=== PATIENT | female | born 1980 | race Caucasian/White ===

== ENCOUNTER 2017-01-15 12:34 | Emergency (ER) | payer MEDICAID, OTHER ==
--- NOTE | 2017-01-15 13:06 | ER Document Report ---
ED GI/ - General Chief Complaint: Vaginal Bleeding Stated Complaint: VAGINAL BLEEDING Time Seen by Provider: 01/15/17 12:54 TRAVEL OUTSIDE OF THE [place] IN LAST 30 DAYS: No - HPI Patient complains to provider of: Vaginal bleeding Onset: Yesterday Timing/Duration: Constant - heavier than normal with pelvic cramps Quality of pain: No pain Context: denies: Bad food, Lifting, Out of the country travel, , Recent trauma, Other Location: No: Chest pain, Epigastric, LUQ, LLQ, RUQ, RLQ, Left flank, Right flank, Low back, Suprapubic, Pelvis, Vaginal, Vulvar, Rectal, Other Vaginal bleeding (Compared to normal period): Heavier Menstrual period history: denies: Irregular - Regular: every 4 weeks and heavy : 3 Para: 3 Abortions: 0 Sexual history: Inactive Associated symptoms: Nausea Exacerbated by: Denies Relieved by: Remaining still, Other - motrin Similar symptoms previously: Yes Recently seen / treated by doctor: No - OBERIBERTO Nails, last pap smear was 2013 - Related Data Allergies/Adverse Reactions: Penicillins Allergy (Intermediate, Verified 01/15/17 12:54) Hives Past Medical History - General Last Menstrual Period: 01/14/2017 - Social History Smoking Status: Former Smoker Chew tobacco use (# tins/day): No Frequency of alcohol use: None Drug Abuse: None Family History: Reviewed & Not Pertinent Renal/ Medical History: Denies: Hx Peritoneal Dialysis Past Surgical History: Reports: Hx Section - 1, Hx Oral Surgery - tooth removal - Immunizations Immunizations up to date: No Hx Diphtheria, Pertussis, Tetanus Vaccination: No Physical Exam - Vital signs Vitals: Temp Pulse Resp BP Pulse Ox 98.5 F 90 16 130/70 H 97 01/15/17 12:42 01/15/17 12:42 01/15/17 12:42 01/15/17 12:42 01/15/17 12:42 - Notes Notes: PHYSICAL EXAM GENERAL: Alert, interacts well. HEAD: Normocephalic, atraumatic. EYES: Pupils equal, round, and reactive to light. Extraocular movements intact. ENT: Oral mucosa moist, tongue midline. LUNGS: Clear to auscultation bilaterally, no wheezes, rales, or rhonchi. No respiratory distress. HEART: Regular rate and rhythm. No murmurs, gallops, or rubs. ABDOMEN: Soft, nondistended, nontender. No guarding, rebound, or rigidity.. Bowel sounds present in all 4 quadrants. FEMALE : Normal external exam. No evidence of lesions, lacerations, bruising or vesicles. Speculum exam normal cervix closed. No evidence of vaginal discharge with odor. No evidence of lesions. Moderate amount of dark blood pooling within the vaginal vault without active vaginal bleeding. bimanual exam normal no cervical motion tenderness. No adnexal mass or adnexal tenderness. EXTREMITIES: Moves all 4 extremities spontaneously. No edema, radial and dorsalis pedis pulses 2/4 bilaterally. No cyanosis. NEUROLOGICAL: Alert and oriented x4. Normal speech. PSYCH: Normal affect, normal mood. SKIN: Warm, dry, normal turgor. No rashes or lesions noted. Course - Re-evaluation Re-evalutation: 01/15/17 15:03 Patient is a 36-year-old female who is hemodynamic stable, no acute distress and afebrile. CBC is stable without any evidence of leukocytosis or anemia. No evidence of electrolyte abnormalities. Patient's hCG was negative. Urinalysis shows red blood cells within the urine but no concern for urinary tract infection. Transvaginal ultrasound reveals a normal uterus with good blood flow to both arteries. No evidence of masses or fibroids. 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 Patient is agreeable with plan. After performing a Medical Screening Examination, I estimate there is LOW risk for ACUTE APPENDICITIS, BOWEL OBSTRUCTION, ACUTE CHOLECYSTITIS, PERFORATED DIVERTICULITIS, INCARCERATED HERNIA, PANCREATITIS, PELVIC INFLAMMATORY DISEASE, PERFORATED ULCER, ECTOPIC , or TUBO-OVARIAN ABSCESS, thus I consider the discharge disposition reasonable. Also, there is no evidence or peritonitis , sepsis, or toxicity. I have reevaluated this patient multiple times and no significant life threatening changes are noted. The patient and I have discussed the diagnosis and risks, and we agree with discharging home with close follow-up with the understanding that symptoms and presentations can change. We also discussed returning to the Emergency Department immediately if new or worsening symptoms occur. We have discussed the symptoms which are most concerning (e.g., bloody stool, fever, changing or worsening pain, vomiting) that necessitate immediate return. - Vital Signs Vital signs: Temp Pulse Resp BP Pulse Ox 98.5 F 90 16 130/70 H 97 01/15/17 12:42 01/15/17 12:42 01/15/17 12:42 01/15/17 12:42 01/15/17 12:42 - Laboratory Result Diagrams: 01/15/17 13:14 01/15/17 13:14 Laboratory results interpreted by me: 01/15/17 01/15/17 13:14 13:14 WBC 11.7 H RDW 14.9 H Absolute Neutrophils 8.3 H Urine Blood LARGE H - Diagnostic Test Radiology reviewed: Image reviewed, Reports reviewed Discharge - Discharge Clinical Impression: Dysfunctional uterine bleeding Condition: Good Disposition: HOME, SELF-CARE Additional Instructions: VAGINAL BLEEDING: You are having an episode of abnormal bleeding. Causes of abnormal vaginal bleeding can include miscarriage or tubal , tumors such as cancer or benign fibroids, medication effects, or hormone imbalance. Testing can eliminate unsuspected , tumors, or infection as a cause. "Dysfunctional uterine bleeding" is due to hormone imbalance, and is especially common at times when the normal cycle is disturbed -- whether by recent , use of control pills or hormones, or impending menopause. If the bleeding is innocent, most commonly a short course of hormones is given to restore the uterus to normal. Sometimes, the normal menstrual cycle corrects itself naturally. Sometimes , brief hormone therapy, or even a D&C is required. Your physician will advise you. Treatment for anemia may be required if bleeding is severe. You should rest and avoid intercourse until the bleeding is controlled. Call the doctor or return for re-examination if you feel faint, have increasing pain, or have a major increase in the amount of bleeding. NORMAL EXAM AND WORKUP: At this time, except for vaginal bleeding, your examination and workup show no significant abnormality. No significant abnormal physical findings were noted. All laboratory, EKG, and imaging (x-ray, CT scans, ultrasound) studies that were ordered show no significant abnormality. Although your examination and all studies that were ordered showed no significant abnormal finding, there are no examinations and no studies that are 100% accurate. There is always the possibility that some abnormality could exist and not be detected with physical examination or within the limits and capabilities of laboratory and other studies. You should return or follow up as you were instructed on your visit today for further evaluation if your symptoms do not resolve. FOLLOW-UP CARE: If you have been referred to a physician for follow-up care, call the physician s office for an appointment as you were instructed or within the next two days. If you experience worsening or a significant change in your symptoms (very heavy bleeding with large clots of blood, passage of tissue, more severe abdominal / pelvic pain or cramping, feeling faint or severe weakness, fever, etc.), notify the physician immediately or return to the Emergency Department at any time for re-evaluation. Prescriptions: Norgestimate-Ethinyl Estradiol [Tri-Sprintec] 1 each PO DAILY #30 tablet Forms: Return to Work Referrals: NITHYA NAILS MD [Primary Care Provider] - Follow up in 3-5 days
[2017-01-15 13:40] LABS: ABSOLUTE BASOPHILS # (AUTO) 0.1 10^3/uL (0.0-0.2); ABSOLUTE EOSINOPHILS # (AUTO) 0.3 10^3/uL (0.0-0.6); ABSOLUTE LYMPHOCYTES (AUTO) 2.1 10^3/uL (0.5-4.7); ABSOLUTE MONOCYTES (AUTO) 0.9 10^3/uL (0.1-1.4); ABSOLUTE NEUT (AUTO) 8.3 10^3/uL (1.7-8.2); BASOPHILS % (AUTO) 0.8 % (0-2); EOSINOPHILS % (AUTO) 2.6 % (0-6); HEMATOCRIT 37.5 % (36.0-47.0); HEMOGLOBIN 12.5 g/dL (12.0-15.5); LYMPHOCYTES % (AUTO) 17.7 % (13-45); MEAN CORPUSCULAR HEMOGLOBIN 29.3 pg (27.0-33.4); MEAN CORPUSCULAR HGB CONC 33.3 g/dL (32.0-36.0); MEAN CORPUSCULAR VOLUME 88 fl (80-97); MONOCYTES % (AUTO) 7.8 % (3-13); RED BLOOD COUNT 4.27 10^6/uL (3.72-5.28); RED CELL DISTRIBUTION WIDTH 14.9 % (11.5-14.0); SEGMENTED NEUTROPHILS % (AUTO) 71.1 % (42-78); WHITE BLOOD COUNT 11.7 10^3/uL (4.0-10.5)
[2017-01-15 13:52] LABS: APPEARANCE,URINE SLIGHTLY-CLOUDY; BILIRUBIN,URINE NEGATIVE (NEGATIVE); CALCIUM OXALATE CRYSTALS,URINE MODERATE /HPF; GLUCOSE, URINE NEGATIVE (NEGATIVE); KETONES,URINE NEGATIVE (NEGATIVE); LEUKOCYTE ESTERASE,URINE NEGATIVE (NEGATIVE); NITRITE,URINE NEGATIVE (NEGATIVE); PROTEIN,URINE NEGATIVE (NEGATIVE); URINE SPECIFIC GRAVITY 1.029; UROBILINOGEN,URINE NEGATIVE mg/dL (<2.0)
[2017-01-15 14:02] LABS: ALANINE AMINOTRANSFERASE 33 U/L (9-52); ALBUMIN 4.2 g/dL (3.5-5.0); ALKALINE PHOSPHATASE 62 U/L (38-126); ANION GAP 12 (5-19); ASPARTATE AMINO TRANSFERASE 20 U/L (14-36); BILIRUBIN,DIRECT 0.3 mg/dL (0.0-0.4); BILIRUBIN,TOTAL 0.3 mg/dL (0.2-1.3); BLOOD UREA NITROGEN 10 mg/dL (7-20); CALCIUM 9.9 mg/dL (8.4-10.2); CARBON DIOXIDE 25 mmol/L (22-30); CHLORIDE 104 mmol/L (98-107); CREATININE RESULT 0.75 mg/dL (0.52-1.25); GLUCOSE 80 mg/dL (75-110); POTASSIUM 4.3 mmol/L (3.6-5.0); SODIUM 141.4 mmol/L (137-145); TOTAL PROTEIN 6.9 g/dL (6.3-8.2)
--- NOTE | 2017-01-15 14:51 | RADIOLOGY REPORT (SQ) ---
EXAM DESCRIPTION: U/S NON OB PEL TV W/DOPPLER COMPLETED DATE/TIME: 01/15/2017 2:35 pm REASON FOR STUDY: vaginal bleeding and pelvic cramping COMPARISON: None. TECHNIQUE: Dynamic and static grayscale images acquired of the pelvis via transvaginal approach and recorded on PACS. Additional selected color Doppler and spectral images recorded. LIMITATIONS: None. FINDINGS: UTERUS: Contour normal. No mass. ENDOMETRIAL STRIPE: No focal or generalized thickening. No masses. CERVIX: No nabothian cysts. RIGHT OVARY: Ovary not visualized. RIGHT OVARY DOPPLER: Normal arterial vascular flow without evidence for torsion. LEFT OVARY: 1.7 cm dominant follicle or small cyst. LEFT OVARY DOPPLER: Normal arterial vascular flow without evidence for torsion. FREE FLUID: None noted. OTHER: No other significant finding. MEASUREMENTS: UTERUS: 10.2 x 5.6 x 4.9 cm ENDOMETRIAL STRIPE: 4 mm RIGHT OVARY: Not visualized. LEFT OVARY: 2.0 x 1.7 x 2.0 cm IMPRESSION: NORMAL TRANSVAGINAL PELVIC ULTRASOUND. TECHNICAL DOCUMENTATION: JOB ID: [id number]- All Rights Reserved
[2017-01-15 15:17] VITALS: BP 125/65
[2017-01-15 15:19] LABS: CHLAM PCR NOT DETECTED (NOT DETECT)
== END 2017-01-15 15:13 | disposition home or self-care (01) ==
LOC: ER 12:34
DX: N93.8 Other specified abnormal uterine and vaginal bleeding (principal); R11.0 Nausea; Z88.0 Allergy status to penicillin; Z87.891 Personal history of nicotine dependence
CPT/HCPCS: 36415; 76830; 80053; 81001; 84702; 85025; 87210; 87491; 87591; 93976; 99284

== ENCOUNTER 2017-04-05 14:22 | Emergency (ER) | payer SELFPAY ==
[2017-04-05] MEDS ORDERED: NAPROXEN 250 MG TABLET PO ONE (15:17)
[2017-04-05] MEDS ORDERED: METHOCARBAMOL 750 MG TABLET PO ONE (15:17)
[2017-04-05] MEDS ORDERED: DEXAMETHASONE 4 MG TABLET PO ONE (15:17)
[2017-04-05 15:22] VITALS: BP 113/68
--- NOTE | 2017-04-05 15:22 | ER Document Report ---
ED Neck/Back Problem - General Chief Complaint: Back Pain Stated Complaint: BACK PAIN Time Seen by Provider: 04/05/17 15:11 Notes: The patient is a 36-year-old female, past medical history chronic back pain, presents with worsening of her back pain after she bent over to diamond picker an object. She felt some spasming and pain that is worse when she moves. She denies change in bowel or bladder, urinary symptoms, fevers, nausea, vomiting, rash or saddle anesthesia. TRAVEL OUTSIDE OF THE [place] IN LAST 30 DAYS: No - Related Data Allergies/Adverse Reactions: Penicillins Allergy (Intermediate, Verified 04/05/17 14:51) Hives Past Medical History - General Information source: Patient - Social History Smoking Status: Former Smoker Chew tobacco use (# tins/day): No Frequency of alcohol use: None Drug Abuse: None Family History: Reviewed & Not Pertinent Patient has suicidal ideation: No Patient has homicidal ideation: No Renal/ Medical History: Denies: Hx Peritoneal Dialysis Past Surgical History: Reports: Hx Section - 1, Hx Oral Surgery - tooth removal - Immunizations Immunizations up to date: No Hx Diphtheria, Pertussis, Tetanus Vaccination: No Review of Systems - Review of Systems Notes: REVIEW OF SYSTEMS: CONSTITUTIONAL: -fevers, -chills EENT: -eye pain, -difficulty swallowing, -nasal congestion CARDIOVASCULAR:-chest pain, -syncope. RESPIRATORY: -cough, -SOB GASTROINTESTINAL: -abdominal pain, - nausea, -vomiting, -diarrhea GENITOURINARY: -dysuria, -hematuria MUSCULOSKELETAL: +back pain, -neck pain SKIN: -rash or skin lesions. HEMATOLOGIC: -easy bruising or bleeding. LYMPHATIC: -swollen, enlarged glands. NEUROLOGICAL: -altered mental status or loss of consciousness, -headache, - neurologic symptoms PSYCHIATRIC: -anxiety, -depression. ALL OTHER SYSTEMS REVIEWED AND NEGATIVE. Physical Exam - Vital signs Vitals: Temp Pulse Resp BP Pulse Ox 98.6 F 121 H 16 118/64 97 04/05/17 14:50 04/05/17 14:50 04/05/17 14:50 04/05/17 14:50 04/05/17 14:50 - Notes Notes: PHYSICAL EXAMINATION: GENERAL: Uncomfortable. HEAD: Atraumatic, normocephalic. EYES: Pupils equal round and reactive to light, extraocular movements intact, sclera anicteric, conjunctiva are normal. ENT: nares patent, oropharynx clear without exudates. Moist mucous membranes. NECK: Normal range of motion, supple without lymphadenopathy LUNGS: Breath sounds clear to auscultation bilaterally and equal. No wheezes rales or rhonchi. HEART: Regular rate and rhythm without murmurs ABDOMEN: Soft, nontender, normoactive bowel sounds. No guarding, no rebound. No masses appreciated. EXTREMITIES: Normal range of motion, no pitting or edema. No cyanosis. BACK: Lower back paraspinal tenderness and spasming. No midline tenderness. NEUROLOGICAL: Cranial nerves grossly intact. Normal speech, normal gait. Normal sensory and motor exams. PSYCH: Normal mood, normal affect. SKIN: Warm, Dry, normal turgor, no rashes or lesions noted. Course - Re-evaluation Re-evalutation: Patient has no urinary symptoms to suggest pyelonephritis or kidney stones. She has an acute exacerbation of her chronic back pain and spasming of her lower back. Her initial tachycardia on arrival to the ER resolved while she was at rest. This was most likely related to her pain. She has no red flag signs for low back pain at this time. Instructed her to continue NSAIDs, Robaxin, Lidoderm patches and follow with her primary care physician for referral to physical therapy. - Vital Signs Vital signs: Temp Pulse Resp BP Pulse Ox 98.6 F 98 16 113/68 97 04/05/17 14:50 04/05/17 15:22 04/05/17 15:22 04/05/17 15:22 04/05/17 14:50 Discharge - Discharge Clinical Impression: Low back pain Qualifiers: Chronicity: acute Back pain laterality: bilateral Sciatica presence: without sciatica Qualified Code(s): M54.5 - Low back pain Condition: Stable Disposition: HOME, SELF-CARE Additional Instructions: LOW BACK PAIN: Three out of every four people will have an episode of disabling back pain during their lifetime. Most commonly the pain is due to straining of the muscles and ligaments in the low back. Usual treatment includes: (1) Rest on a firm surface. Avoid lying on your stomach. (2) Ice pack the painful area. After a few days, gentle heat may be used intermittently to relax the area, or ice packs can be continued. (3) Medication may be needed -- muscle relaxers and antiinflammatory medicines are commonly used. (4) As the back improves, exercises are prescribed to strengthen the back and abdominal muscles. Your doctor will advise you on the proper care for your back at each stage in your recovery. You may be better in a few days -- or healing may take several weeks. If new symptoms of a "herniated disc" (radiation of pain, numbness, or tingling down the back of the leg or weakness in the leg) occur, you should be re-examined. Further testing may be necessary. MUSCLE RELAXERS: Muscle relaxing medications are usually prescribed for acute muscle spasm or injury to the neck and back. They are often combined with antiinflammatory pain medication for increased relief. You may stop the muscle relaxer when the pain and stiffness have improved. Start the medication again if spasms recur. Muscle relaxers may cause drowsiness, especially with the first dose. Do not operate machinery or drive while under the effects of the medication. Most muscle relaxers last up to 24 hours. Do not combine the medication with alcohol. ICE PACKS: Apply ice packs frequently against the painful area. Many different schedules are recommended, such as "20 minutes on, 20 minutes off" or "one hour ice, two hours rest." If you need to work, you may need to go longer between ice treatments. You should plan to have the area ice packed AT LEAST one fourth of the time. The ice should be applied over the wrap, tape, or splint, or over a layer of cloth -- not directly against the skin. Some ice bags have a built-in cloth and can be put directly on the skin. WARM PACKS: After approximately two days, apply gentle heat (such as a heating pad or hot water bottle) for about 20 to 30 minutes about every two hours -- at least four times daily. Warmth and elevation will help you make a more rapid recovery , and will ease the pain considerably. Do not use HOT heat, and never apply heat for longer than 30 minutes. The continuous heat can invisibly damage skin and muscles -- even when no burn is seen on the surface. Damaged muscles can make you MORE sore. FOLLOW-UP CARE: If you have been referred to a physician for follow-up care, call the physician s office for an appointment as you were instructed or within the next two days. If you experience worsening or a significant change in your symptoms, notify the physician immediately or return to the Emergency Department at any time for re-evaluation. Prescriptions: Lidocaine [Lidoderm 5% (700 mg) Transdermal Patch] 1 patch TP DAILY #10 adh..patch Methocarbamol [Robaxin 500 mg Tablet] 500 mg PO Q4H PRN #15 tablet PRN Reason: Forms: Return to Work
== END 2017-04-05 15:30 | disposition home or self-care (01) ==
LOC: ER 14:22
DX: G89.29 Other chronic pain (principal); M54.5 Low back pain; Z88.0 Allergy status to penicillin
CPT/HCPCS: 99283; J3490

== ENCOUNTER 2018-02-13 20:38 | Emergency (ER) | payer SELFPAY ==
--- NOTE | 2018-02-13 23:02 | ER Document Report ---
HPI - HPI Pain Level: 4 Notes: Patient is a 37-year-old female who presents to the ED complaining of left ear pain and feeling of swelling to the left jaw area times 1 day. Patient has also had nasal congestion/discharge and sneezing. Patient states that she does have some mold in her house. The pain is to the left ear and will occasionally come down towards her jaw and her neck. She is eating and drinking without any difficulties. She is urinating normally and having normal bowel movements. Patient states that she otherwise feels well. Denies any headache, fever, head injury, neck pain, changes in vision/speech/mentation/hearing, URI, sore throat , chest pain, palpitations, syncope, cough, shortness of breath, wheeze, dyspnea , abdominal pain, nausea/vomiting/diarrhea, urinary retention, dysuria, hematuria, or rash. - ROS Systems Reviewed and Negative: Yes All other systems reviewed and negative - EENT EENT: REPORTS: Sore Throat, Ear Pain - REPRODUCTIVE LMP: na Reproductive: DENIES: : Past Medical History - Social History Smoking Status: Current Every Day Smoker Chew tobacco use (# tins/day): No Frequency of alcohol use: None Drug Abuse: None Family History: Reviewed & Not Pertinent Patient has suicidal ideation: No Patient has homicidal ideation: No Renal/ Medical History: Denies: Hx Peritoneal Dialysis Past Surgical History: Reports: Hx Section - 1, Hx Oral Surgery - tooth removal - Immunizations Immunizations up to date: No Hx Diphtheria, Pertussis, Tetanus Vaccination: No Vertical Provider Document - CONSTITUTIONAL Agree With Documented VS: Yes Notes: PHYSICAL EXAMINATION: GENERAL: Well-appearing, well-nourished and in no acute distress. HEAD: Atraumatic, normocephalic. EYES: Pupils equal round and reactive to light, extraocular movements intact, sclera anicteric, conjunctiva are normal. ENT: EAC clear b/l. TM's intact b/l without erythema, fluid, or perforation. Nares patent and with clear discharge. oropharynx clear without exudates. No tonsilar hypertrophy or erythema. Moist mucous membranes. No sinus tenderness. Uvula midline. No palatine shift. No tongue protrusion. No respiratory compromise. Mouth: No obvious abscess or discharge noted. No facial swelling. No bony tenderness. NECK: Normal range of motion, supple without lymphadenopathy. No rigidity/ meningismus. LUNGS: Breath sounds clear to auscultation bilaterally and equal. No wheezes rales or rhonchi. HEART: Regular rate and rhythm without murmurs, rubs, gallops. NEUROLOGICAL: Cranial nerves grossly intact. Normal speech, normal gait. PSYCH: Normal mood, normal affect. SKIN: Warm, Dry, normal turgor, no rashes or lesions noted. - INFECTION CONTROL TRAVEL OUTSIDE OF THE [place] IN LAST 30 DAYS: No Course - Re-evaluation Re-evalutation: 02/13/18 22:54 Patient is an afebrile, well-hydrated, 37-year-old female who presents to the ED with left otalgia, suspect eustachian tube dysfunction allergy with possible etiology. Vitals are acceptable. PE is otherwise unremarkable. Patient is nontoxic-appearing and is tolerating p.o. without any difficulties. No labs or imaging warranted at this time based on H&P. Low suspicion for any meningitis, sepsis, peritonsillar/pharyngeal abscess, respiratory compromise, Johnathan's, temporal arteritis, mastoiditis, or other emergent systemic condition at this time. Patient is aware this condition can change from initial presentation and she needs to monitor symptoms closely. We will send her home with a prescription for clindamycin which she may begin with any worsening swelling or dental pain. Conservative measures otherwise for symptoms. Recheck with your PCM this week as well. Return to the ED with any worsening/concerning symptoms otherwise as reviewed in discharge. Patient is in agreement. - Vital Signs Vital signs: Temp Pulse Resp BP Pulse Ox 99.1 F 86 18 129/83 H 98 02/13/18 20:55 02/13/18 20:55 02/13/18 20:55 02/13/18 20:55 02/13/18 20:55 Discharge - Discharge Clinical Impression: Eustachian tube dysfunction Qualifiers: Laterality: left Qualified Code(s): H69.82 - Other specified disorders of Eustachian tube, left ear Allergic rhinitis Qualifiers: Allergic rhinitis trigger: other Allergic rhinitis seasonality: unspecified Qualified Code(s): J30.89 - Other allergic rhinitis Condition: Stable Disposition: HOME, SELF-CARE Instructions: OTC Antihistamines ([facility]) Additional Instructions: Maintain adequate fluid intake Take meds as directed tylenol/ibuprofen as needed over the counter cold medication as needed for symptoms Humidified air may help Wash your hands regularly Wear a mask when coughing F/u: with your PCM in 3-5 days for a recheck Return to the ED with any fever, worsening pain, chest pain, palpitations, syncope, worsening JAMES, neck pain/stiffness, shortness of breath, wheezing, drooling, trouble swallowing/breathing, abdominal pain, n/v/d, rash, or worsening/concerning symptoms otherwise. Forms: Elevated Blood Pressure, Smoking Cessation Education Referrals: [facility] [Provider Group] - Follow up as needed [facility] [Provider Group] - Follow up as needed
[2018-02-13 23:20] VITALS: BP 119/80
== END 2018-02-13 23:20 | disposition home or self-care (01) ==
LOC: ER 20:38
DX: H69.82 Other specified disorders of Eustachian tube, left ear (principal); J30.89 Other allergic rhinitis; H92.02 Otalgia, left ear; F17.200 Nicotine dependence, unspecified, uncomplicated
CPT/HCPCS: 99283

== ENCOUNTER 2018-12-23 06:46 | Emergency (ER) | payer SELFPAY ==
--- NOTE | 2018-12-23 07:47 | EKG REPORT ---
SEVERITY:- NORMAL ECG - SINUS RHYTHM : Confirmed by: Derek Sprague MD 23-Dec-2018 07:37:10
[2018-12-23] MEDS ORDERED: ASPIRIN 325 MG TABLET PO ONE (08:51)
[2018-12-23] MEDS ORDERED: NORMAL SALINE 1000 ML 1,000 ML IV ONE (08:53)
--- NOTE | 2018-12-23 08:53 | ER Document Report ---
ED General - General Chief Complaint: Chest Pain Stated Complaint: CHEST/BACK PAIN Time Seen by Provider: 12/23/18 08:41 Primary Care Provider: [facility] [Provider Group] - Follow up in 3-5 days TRAVEL OUTSIDE OF THE [place] IN LAST 30 DAYS: No - HPI Notes: 38 year old female to the ED with C/O midsternal chest pain that radiates through to her back that has been coming and going since Sunday. She admits to slight SOB with it. Denies any diaphoresis, NV, dizziness, arm pain. States she was recently diagnosed with asthma. States on Sunday she took her inhaler and felt better. States that she didn't have another episode of chest pain until this morning at 5 am. She is not diabetic. She does not have HTN or HLD. She does not smoke. She is unsure of her family history in regards to ACS, but she does not recall anyone having a heart attack. She has not taken anything for her pain this AM. No recent travel, no OCP use, no leg swelling, no recent immobilization or surgery. No hx of DVT. - Related Data Allergies/Adverse Reactions: Penicillins Allergy (Intermediate, Verified 08/29/17 17:45) Hives Past Medical History - General Information source: Patient - Social History Smoking Status: Never Smoker Frequency of alcohol use: None Drug Abuse: None Family History: Reviewed & Not Pertinent Renal/ Medical History: Denies: Hx Peritoneal Dialysis Past Surgical History: Reports: Hx Section - 1, Hx Oral Surgery - tooth removal - Immunizations Immunizations up to date: No Hx Diphtheria, Pertussis, Tetanus Vaccination: No Review of Systems - Review of Systems Constitutional: denies: Chills, Diaphoresis, Fever EENT: denies: No symptoms reported Cardiovascular: Chest pain. denies: Palpitations, Dyspnea, Syncope, Dizziness, Lightheaded Respiratory: Hurts to breathe, Short of breath. denies: Cough, Wheezing Gastrointestinal: denies: Abdominal pain, Diarrhea, Nausea, Vomiting Genitourinary: No symptoms reported Female Genitourinary: No symptoms reported Musculoskeletal: Back pain Skin: No symptoms reported Hematologic/Lymphatic: No symptoms reported Neurological/Psychological: No symptoms reported -: Yes All other systems reviewed and negative Physical Exam - Vital signs Vitals: Temp Pulse Resp BP Pulse Ox 98.4 F 77 16 144/71 H 97 12/23/18 06:54 12/23/18 06:54 12/23/18 06:54 12/23/18 06:54 12/23/18 06:54 Interpretation: Normal - General General appearance: Appears well, Alert - HEENT Head: Normocephalic, Atraumatic Eyes: Normal Pupils: PERRL - Respiratory Respiratory status: No respiratory distress Chest status: Nontender Breath sounds: Normal Chest palpation: Normal - Cardiovascular Rhythm: Regular Heart sounds: Normal auscultation Murmur: No - Abdominal Inspection: Normal Distension: No distension Bowel sounds: Normal Tenderness: Nontender Organomegaly: No organomegaly - Back Back: Normal, Nontender - Neurological Neuro grossly intact: Yes Cognition: Normal Orientation: AAOx4 Debord Coma Scale Eye Opening: Spontaneous Debord Coma Scale Verbal: Oriented Debord Coma Scale Motor: Obeys Commands Debord Coma Scale Total: 15 Speech: Normal Motor strength normal: LUE, RUE, LLE, RLE Sensory: Normal - Psychological Associated symptoms: Normal affect, Normal mood - Skin Skin Temperature: Warm Skin Moisture: Dry Skin Color: Normal Course - Re-evaluation Re-evalutation: Impression: Chest pain, Patient has a HEART Score of 1. She has a reassuring CXR, EKG, negative Trops X2. She is chest pain free. Will discharge home with close outpatient follow up. Urged to return if her symptoms worsen. Doubt PE or AD. She is PERC negative. - Vital Signs Vital signs: Temp Pulse Resp BP Pulse Ox 98.9 F 77 15 129/89 H 100 12/23/18 13:01 12/23/18 06:54 12/23/18 13:01 12/23/18 13:01 12/23/18 13:01 - Laboratory Result Diagrams: 12/23/18 09:29 12/23/18 09:29 Laboratory results interpreted by me: 12/23/18 12/23/18 09:29 09:29 WBC 12.2 H RDW 15.0 H Absolute Neutrophils 8.5 H Total Protein 5.6 L Albumin 3.3 L - Diagnostic Test Radiology reviewed: Image reviewed, Reports reviewed - EKG Interpretation by Me EKG shows normal: Sinus rhythm Rate: Normal Rhythm: NSR When compared to previous EKG there are: No significant change Additional EKG results interpreted by me: NO STEMI, no ST CHANGES, no significant change from prior in August 2017 Discharge - Discharge Clinical Impression: Chest pain Condition: Stable Disposition: HOME, SELF-CARE Instructions: Chest Pain of Unclear Cause ([facility]) Additional Instructions: TAKE MEDICINES PRESCRIBED. RETURN IF WORSENING PAIN, FEVERS, CHILLS, SHORTNESS OF BREATH, SWEATING WITH CHEST PAIN AND SHORTNESS OF BREATH. PUSH FLUIDS. FOLLOW UP WITH PRIMARY CARE WITHOUT FAIL. Prescriptions: Naproxen [Naprosyn 375 Mg Tablet] 375 mg PO BID #20 tablet Forms: Return to Work Referrals: [facility] [Provider Group] - Follow up in 3-5 days
[2018-12-23 09:27] LABS: APPEARANCE,URINE CLEAR; BILIRUBIN,URINE NEGATIVE (NEGATIVE); COLOR,URINE YELLOW; GLUCOSE, URINE NEGATIVE (NEGATIVE); KETONES,URINE NEGATIVE (NEGATIVE); LEUKOCYTE ESTERASE,URINE NEGATIVE (NEGATIVE); NITRITE,URINE NEGATIVE (NEGATIVE); PROTEIN,URINE NEGATIVE (NEGATIVE); URINE SPECIFIC GRAVITY 1.015; UROBILINOGEN,URINE NEGATIVE mg/dL (<2.0)
--- NOTE | 2018-12-23 09:33 | RADIOLOGY REPORT (SQ) ---
EXAM DESCRIPTION: CHEST 2 VIEWS COMPLETED DATE/TIME: 12/23/2018 9:13 am REASON FOR STUDY: chest pain COMPARISON: None. EXAM PARAMETERS: NUMBER OF VIEWS: two views TECHNIQUE: Digital Frontal and Lateral radiographic views of the chest acquired. RADIATION DOSE: NA LIMITATIONS: none FINDINGS: LUNGS AND PLEURA: No opacities, masses or pneumothorax. No pleural effusion. MEDIASTINUM AND HILAR STRUCTURES: No masses or contour abnormalities. HEART AND VASCULAR STRUCTURES: Heart normal size. No evidence for failure. BONES: No acute findings. HARDWARE: None in the chest. OTHER: No other significant finding. IMPRESSION: No acute abnormality of the lungs. No focal airspace opacity. TECHNICAL DOCUMENTATION: JOB ID: [id number] [employer]- All Rights Reserved Reading location - IP/workstation name: [email or web address]
[2018-12-23 09:54] LABS: ABSOLUTE BASOPHILS # (AUTO) 0.1 10^3/uL (0.0-0.2); ABSOLUTE EOSINOPHILS # (AUTO) 0.3 10^3/uL (0.0-0.6); ABSOLUTE LYMPHOCYTES (AUTO) 2.4 10^3/uL (0.5-4.7); ABSOLUTE MONOCYTES (AUTO) 0.9 10^3/uL (0.1-1.4); ABSOLUTE NEUT (AUTO) 8.5 10^3/uL (1.7-8.2); BASOPHILS % (AUTO) 1.2 % (0-2); EOSINOPHILS % (AUTO) 2.7 % (0-6); HEMATOCRIT 41.2 % (36.0-47.0); HEMOGLOBIN 13.6 g/dL (12.0-15.5); LYMPHOCYTES % (AUTO) 19.4 % (13-45); MEAN CORPUSCULAR HEMOGLOBIN 29.1 pg (27.0-33.4); MEAN CORPUSCULAR VOLUME 88 fl (80-97); MONOCYTES % (AUTO) 7.1 % (3-13); PLATELET COUNT 305 10^3/uL (150-450); RED BLOOD COUNT 4.67 10^6/uL (3.72-5.28); SEGMENTED NEUTROPHILS % (AUTO) 69.6 % (42-78); TOTAL CELLS COUNTED % (AUTO) 100 %; WHITE BLOOD COUNT 12.2 10^3/uL (4.0-10.5)
[2018-12-23 10:12] LABS: ALBUMIN 3.3 g/dL (3.5-5.0); ALKALINE PHOSPHATASE 43 U/L (38-126); ANION GAP 6 (5-19); ASPARTATE AMINO TRANSFERASE 21 U/L (14-36); BILIRUBIN,DIRECT 0.3 mg/dL (0.0-0.4); BILIRUBIN,TOTAL 0.4 mg/dL (0.2-1.3); BLOOD UREA NITROGEN 8 mg/dL (7-20); CALCIUM 9.1 mg/dL (8.4-10.2); CARBON DIOXIDE 26 mmol/L (22-30); CHLORIDE 107 mmol/L (98-107); CREATINE KINASE 46 U/L (30-135); GLUCOSE 89 mg/dL (75-110); POTASSIUM 4.5 mmol/L (3.6-5.0); TOTAL PROTEIN 5.6 g/dL (6.3-8.2)
[2018-12-23 10:24] LABS: CREATINE KINASE MB < 0.22 ng/mL (<4.55); TROPONIN I < 0.012 ng/mL
[2018-12-23 14:21] VITALS: BP 129/89
== END 2018-12-23 14:21 | disposition home or self-care (01) ==
LOC: ER 06:46
DX: R07.1 Chest pain on breathing (principal); J45.909 Unspecified asthma, uncomplicated; R06.02 Shortness of breath; Z88.0 Allergy status to penicillin
CPT/HCPCS: 93005; 99285; 96360; 36415; 82553; 82550; 83690; 84703; 85025; 80053; 81001; 84484; 71046; 93010; J7030

== ENCOUNTER 2019-01-29 19:38 | Emergency (ER) | payer SELFPAY ==
--- NOTE | 2019-01-29 21:04 | ER Document Report ---
ED Medical Screen (RME) - General Chief Complaint: Flank Pain Stated Complaint: BACK PAIN Time Seen by Provider: 01/29/19 20:56 Mode of Arrival: Ambulatory Information source: Patient Notes: This 38-year-old female presents emergency department with right-sided abdominal pain. Patient reports 2 to 3 days ago she started having right-sided low back pain. Today she started having right-sided abdominal pain lower and upper into the epigastric area. Denies fever vomiting diarrhea. Reports she is voiding without problems. Last bowel movement was this a.m. She reports she just finished her menses. Reports history of kidney stones when she was a teenager. Patient still has her gallbladder and appendix. No pains with walking. Abdomen is round but patient reports is not larger than normal. I have greeted and performed a rapid initial assessment of this patient. A comprehensive ED assessment and evaluation of the patient, analysis of test results and completion of the medical decision making process will be conducted by additional ED providers. Dictation of this chart was performed using voice recognition software; therefore, there may be some unintended grammatical errors. TRAVEL OUTSIDE OF THE [place] IN LAST 30 DAYS: No - Related Data Allergies/Adverse Reactions: Penicillins Allergy (Intermediate, Verified 01/29/19 19:45) Hives Past Medical History Pulmonary Medical History: Reports: Hx Asthma Renal/ Medical History: Denies: Hx Peritoneal Dialysis Past Surgical History: Reports: Hx Section - 1, Hx Oral Surgery - tooth removal - Immunizations Immunizations up to date: No Hx Diphtheria, Pertussis, Tetanus Vaccination: No Physical Exam - Vital signs Vitals: Temp Pulse Resp BP Pulse Ox 98.9 F 89 18 134/79 H 97 01/29/19 19:52 01/29/19 19:52 01/29/19 19:52 01/29/19 19:52 01/29/19 19:52 Course - Vital Signs Vital signs: Temp Pulse Resp BP Pulse Ox 98.9 F 89 18 134/79 H 97 01/29/19 19:52 01/29/19 19:52 01/29/19 19:52 01/29/19 19:52 01/29/19 19:52
[2019-01-29 21:26] LABS: APPEARANCE,URINE CLEAR; BILIRUBIN,URINE NEGATIVE (NEGATIVE); COLOR,URINE STRAW; GLUCOSE, URINE NEGATIVE (NEGATIVE); KETONES,URINE NEGATIVE (NEGATIVE); LEUKOCYTE ESTERASE,URINE NEGATIVE (NEGATIVE); NITRITE,URINE NEGATIVE (NEGATIVE); PROTEIN,URINE NEGATIVE (NEGATIVE); URINE SPECIFIC GRAVITY 1.006; UROBILINOGEN,URINE NEGATIVE mg/dL (<2.0)
--- NOTE | 2019-01-29 22:41 | ER Document Report ---
ED GI/ - General Chief Complaint: Flank Pain Stated Complaint: BACK PAIN Time Seen by Provider: 01/29/19 22:41 Mode of Arrival: Ambulatory Information source: Patient Notes: HISTORY OF PRESENT ILLNESS: Patient is a 38-year-old female with no pertinent past medical history who presents with right flank and lower quadrant pain that began 1 to 2 days ago. Patient denies having similar symptoms in the past, no history of kidney stones or UTIs. Patient does report that she has occasional irregular bleeding and has had a uterine fibroid before but denies having ovarian cysts. Location: Right flank Onset: Gradual 2 days ago Alleviation: None Provocation: Movement Quality: Aching, cramping Radiation: None Severity: Moderate Timing: Constant History of abdominal surgery: None Associated symptoms: Denies nausea or vomiting, no fevers or chills, no hematuria or dysuria, no diarrhea or constipation Last bowel movement: Today and normal Last menstrual period: Last month REVIEW OF SYSTEMS: CONSTITUTIONAL : Denies fever or chills, no sweats. Denies recent illness. EENT: Denies eye, ear, throat, or mouth pain or symptoms. Denies nasal or sinus congestion. CARDIOVASCULAR: Denies chest pain. Denies swelling of the legs. RESPIRATORY: Denies cough, cold, or chest congestion. Denies shortness of breath or difficulty breathing. Denies wheezing. GASTROINTESTINAL: Positive for abdominal pain. Denies nausea, vomiting, or diarrhea. Denies constipation. GENITOURINARY: Denies difficulty urinating, painful urination, burning, frequency, or blood in urine. FEMALE GENITOURINARY: Denies vaginal bleeding, abnormal or irregular periods. MUSCULOSKELETAL: Denies neck or back pain or joint pain or swelling. SKIN: Denies rash or skin lesions. HEMATOLOGIC : Denies easy bruising or bleeding. LYMPHATIC: Denies swollen, enlarged glands. NEUROLOGICAL: Denies altered mental status or loss of consciousness. Denies headache. Denies weakness or paralysis or loss of use of either side. Denies problems with gait or speech. Denies sensory or motor loss. PSYCHIATRIC: Denies anxiety or stress or depression. All other systems reviewed and negative. PHYSICAL EXAMINATION: GENERAL: Well-appearing, well-nourished and in no acute distress. HEAD: Atraumatic, normocephalic. No scalp deformity, depression, or crepitance. EYES: Pupils are 3 mm and equal/round/reactive to light, extraocular movements intact, sclera anicteric, conjunctiva are normal. ENT: Nares patent bilaterally, oropharynx. Moist mucous membranes. No tonsil hypertrophy. NECK: Normal range of motion, supple without lymphadenopathy. LUNGS: Breath sounds present, equal, and clear to auscultation bilaterally. No wheezes, rales, or rhonchi. HEART: Regular rate and rhythm without murmurs, rubs, or gallops. 2+ peripheral pulses. Normal capillary refill. ABDOMEN: Soft and nondistended, mild pain in the right lower quadrant and right flank. Normoactive bowel sounds. No guarding, no rebound. No masses appreciated. BACK: Normal contour, no midline tenderness. Rectal exam deferred. GENITAL/PELVIC: Deferred. EXTREMITIES: Normal range of motion, no pitting or edema. No cyanosis. NEUROLOGICAL: No focal neurological deficits. Moves all extremities spontaneously and on command. PSYCH: Normal mood, normal affect. No suicidal thoughts/ideations. No homicidal thoughts/ideations. No hallucinations. SKIN: Warm, dry, normal turgor, no rashes or lesions noted. ASSESSMENT AND PLAN: This patient is a 38-year-old female who presents with right flank and lower quadrant pain that could be ureterolithiasis versus appendicitis versus muscle strain versus much less likely ovarian/uterine pathology. 1. Will obtain labs, urine, and CT scan of the abdomen/pelvis. 2. Will give IV fluids with Toradol and reassess. TRAVEL OUTSIDE OF THE [place] IN LAST 30 DAYS: No - HPI Patient complains to provider of: Abdominal pain, Flank pain Onset: Yesterday Timing/Duration: Sudden Quality of pain: Achy, Cramping Severity at maximum: Moderate Severity in ED: Mild Pain Level: 2 Context: Other - Unknown Location: Right flank Vaginal bleeding (Compared to normal period): None Sexual history: Active Associated symptoms: None Exacerbated by: Movement Relieved by: Denies Similar symptoms previously: No Recently seen / treated by doctor: No - Related Data Allergies/Adverse Reactions: Penicillins Allergy (Intermediate, Verified 01/29/19 19:45) Hives Past Medical History - General Information source: Patient - Social History Smoking Status: Former Smoker Chew tobacco use (# tins/day): No Frequency of alcohol use: None Drug Abuse: None Lives with: Family Family History: Reviewed & Not Pertinent Patient has suicidal ideation: No Patient has homicidal ideation: No - Past Medical History Cardiac Medical History: Reports: None Pulmonary Medical History: Reports: Hx Asthma EENT Medical History: Reports: None Neurological Medical History: Reports: None Endocrine Medical History: Reports: None Renal/ Medical History: Reports: None. Denies: Hx Peritoneal Dialysis Malignancy Medical History: Reports: None GI Medical History: Reports: None Musculoskeletal Medical History: Reports None Skin Medical History: Reports None Psychiatric Medical History: Reports: None Traumatic Medical History: Reports: None Infectious Medical History: Reports: None Past Surgical History: Reports: Hx Section - 1, Hx Oral Surgery - tooth removal - Immunizations Immunizations up to date: No Hx Diphtheria, Pertussis, Tetanus Vaccination: No Review of Systems - Review of Systems Constitutional: No symptoms reported EENT: No symptoms reported Cardiovascular: No symptoms reported Respiratory: No symptoms reported Gastrointestinal: See HPI, Abdominal pain Genitourinary: See HPI, Flank pain Female Genitourinary: No symptoms reported Musculoskeletal: No symptoms reported Skin: No symptoms reported Hematologic/Lymphatic: No symptoms reported Neurological/Psychological: No symptoms reported -: Yes All other systems reviewed and negative Physical Exam - Vital signs Vitals: Temp Pulse Resp BP Pulse Ox 98.9 F 89 18 134/79 H 97 01/29/19 19:52 01/29/19 19:52 01/29/19 19:52 01/29/19 19:52 01/29/19 19:52 Interpretation: Normal Course - Re-evaluation Re-evalutation: 01/30/19 04:53 CT scan is negative. Labs are otherwise unremarkable. Will discharge the patient home with strict return precautions and follow-up with primary care. All results were explained to and discussed with the patient, and all questions addressed and answered for the patient. The patient voices both understanding and agreeing with the plan. - Vital Signs Vital signs: Temp Pulse Resp BP Pulse Ox 97.8 F 74 16 115/54 L 99 01/30/19 03:19 01/30/19 03:19 01/30/19 03:19 01/30/19 03:19 01/30/19 03:19 - Laboratory Result Diagrams: 01/30/19 00:55 01/30/19 00:55 Laboratory results interpreted by me: 01/30/19 01/30/19 00:55 00:55 WBC 13.8 H RDW 14.5 H Absolute Neuts (auto) 9.5 H AST 40 H Total Protein 5.7 L - Diagnostic Test Radiology reviewed: Image reviewed, Reports reviewed - EKG Interpretation by Me EKG shows normal: Sinus rhythm Rate: Normal Rhythm: NSR [place]/QRS: No: Right axis deviation, Left axis deviation, RBBB, LBBB, IVCD, LAHB/LAFB, LPHB/LPFB, Bifasicular block Voltage: No: Increased voltage, Consistant with LVH, Decreased voltage, Throughout, Limb leads P Waves: No: SHELLEY, LAE, Absent, AV Dissociation, Other Heart block present: No: 1st Degree, Mobitz 1, Mobitz 2, CHB (3rd degree block) When compared to previous EKG there are: No significant change Discharge - Discharge Clinical Impression: Abdominal pain Qualifiers: Abdominal location: right lower quadrant Qualified Code(s): R10.31 - Right lower quadrant pain Condition: Good Disposition: HOME, SELF-CARE Instructions: Abdominal Pain ([facility]) Additional Instructions: You have been evaluated in the Emergency Department for abdominal pain. While here, you had blood work and a CT scan that showed no acute issues and it is now safe to be discharged home. Please follow-up with your primary physician as instructed in one week to be rechecked. Return to the Emergency Department if you experience worsening pain, vomiting, bloody diarrhea, or any other concerning symptoms. Prescriptions: Diclofenac Sodium 75 mg PO BID #30 tablet.dr Forms: Return to Work Print Language: Bangladeshi
--- NOTE | 2019-01-29 22:52 | RADIOLOGY REPORT (SQ) ---
EXAM DESCRIPTION: US ABDOMEN LIMITED COMPLETED DATE/TME: 01/29/2019 21:01 CLINICAL HISTORY: 38 years, Female, abd pain right side COMPARISON: None. TECHNIQUE: Axial 2-D grayscale images of the abdomen were acquired. Doppler was utilized. LIMITATIONS: None. FINDINGS: Visualized portions of the pancreas appear normal in echogenicity. Visualized portions of the abdominal aorta appear normal with measurements as follows: Proximal: 1.5 cm Mid: 2.1 cm Distal: 1.8 cm Visualized portions of the liver appear echogenic. It measures 17.4 cm in length. Antegrade flow is documented within the main portal vein. Gallbladder wall thickness measures 1 to 2 mm. No gallstones. Sonographic Melara sign was negative. However, there is echogenic material layering dependently within the gallbladder lumen, indicating sludge. Common bile duct measures 3 mm. Right kidney measures 10.2 cm in length. No hydronephrosis. IMPRESSION: Gallbladder sludge. Otherwise, no sonographic evidence of acute cholecystitis. Echogenic liver, suggestive of hepatic steatosis. copyright 2010 [employer]- All Rights Reserved
[2019-01-29] MEDS ORDERED: KETOROLAC TROMETHAMINE INJ/PF 30 MG/1 ML SDV IV ONE (23:43)
[2019-01-30 01:11] LABS: ABSOLUTE BASOPHILS # (AUTO) 0.2 10^3/uL (0.0-0.2); ABSOLUTE EOSINOPHILS # (AUTO) 0.4 10^3/uL (0.0-0.6); ABSOLUTE MONOCYTES (AUTO) 0.8 10^3/uL (0.1-1.4); ABSOLUTE NEUT (AUTO) 9.5 10^3/uL (1.7-8.2); BASOPHILS % (AUTO) 1.2 % (0-2); EOSINOPHILS % (AUTO) 2.7 % (0-6); HEMOGLOBIN 12.3 g/dL (12.0-15.5); LYMPHOCYTES % (AUTO) 21.8 % (13-45); MEAN CORPUSCULAR HGB CONC 33.3 g/dL (32.0-36.0); MEAN CORPUSCULAR VOLUME 87 fl (80-97); MONOCYTES % (AUTO) 5.5 % (3-13); PLATELET COUNT 330 10^3/uL (150-450); RED BLOOD COUNT 4.25 10^6/uL (3.72-5.28); RED CELL DISTRIBUTION WIDTH 14.5 % (11.5-14.0); SEGMENTED NEUTROPHILS % (AUTO) 68.8 % (42-78); TOTAL CELLS COUNTED % (AUTO) 100 %; WHITE BLOOD COUNT 13.8 10^3/uL (4.0-10.5)
[2019-01-30 01:29] LABS: ALBUMIN 3.5 g/dL (3.5-5.0); ALKALINE PHOSPHATASE 60 U/L (38-126); ANION GAP 6 (5-19); ASPARTATE AMINO TRANSFERASE 40 U/L (14-36); BILIRUBIN,DIRECT 0.1 mg/dL (0.0-0.4); BILIRUBIN,TOTAL 0.4 mg/dL (0.2-1.3); BLOOD UREA NITROGEN 9 mg/dL (7-20); CALCIUM 9.3 mg/dL (8.4-10.2); CARBON DIOXIDE 29 mmol/L (22-30); CHLORIDE 102 mmol/L (98-107); GLUCOSE 92 mg/dL (75-110); TOTAL PROTEIN 5.7 g/dL (6.3-8.2)
--- NOTE | 2019-01-30 02:34 | RADIOLOGY REPORT (SQ) ---
CLINICAL HISTORY: Abdominal pain. HCG NEG COMPARISON: None. TECHNIQUE: CT ABDOMEN PELVIS WITH IV CONTRAST on 01/29/2019 11:43 PM CDT This exam was performed according to our departmental dose-optimization program, which includes automated exposure control, adjustment of the mA and/or kV according to patient size and/or use of iterative reconstruction technique. FINDINGS: Lower lungs are clear. Abdomen: The liver is normal in appearance. There is no biliary dilatation. Gallbladder is normal in appearance. The pancreas and spleen are normal in appearance. The adrenal glands and kidneys are unremarkable. Abdominal aorta is normal in course and caliber without aneurysm. There is no free air. There is no retroperitoneal adenopathy. Pelvis: There is no bowel obstruction. Urinary bladder is unremarkable. There is no free fluid. Uterus is normal in size. Appendix is normal. Skeleton: There are no acute osseous findings. No suspicious bony lesions. IMPRESSION: No acute inflammatory process. No renal or ureteral calculi.
[2019-01-30 03:21] VITALS: BP 115/54
== END 2019-01-30 03:30 | disposition home or self-care (01) ==
LOC: ER 19:38
DX: R10.31 Right lower quadrant pain (principal); M54.9 Dorsalgia, unspecified; N93.9 Abnormal uterine and vaginal bleeding, unspecified; D25.9 Leiomyoma of uterus, unspecified; Z87.891 Personal history of nicotine dependence; J45.909 Unspecified asthma, uncomplicated
CPT/HCPCS: 36415; 83690; 85025; 81025; 80053; 81001; 76705; 74177; J1885

== ENCOUNTER 2019-07-07 07:58 | Emergency (ER) | payer OTHER ==
[2019-07-07 08:03] VITALS: BP 132/83
--- NOTE | 2019-07-07 08:41 | ER Document Report ---
HPI - HPI Patient complains to provider of: Bilateral ear pain Time Seen by Provider: 07/07/19 08:28 Onset: Yesterday Onset/Duration: Sudden Pain Level: 3 Context: 39-year-old female presents emergency department with complaints of bilateral ear pain that started yesterday. Reports some nausea. Reports the right ear hurts more than left. Denies fever vomiting diarrhea. Denies recent trauma. Denies swimming. 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 Associated Symptoms: Nausea Exacerbated by: Denies Relieved by: Denies Similar symptoms previously: No Recently seen / treated by doctor: No - CONSTITUTIONAL Constitutional: DENIES: Fever, Chills - EENT EENT: REPORTS: Ear Pain - bilateral R.L. DENIES: Sore Throat, Eye problems - NEURO Neurology: REPORTS: Headache - r/t ear pain. DENIES: Weakness, Vision blurred, Dizzinesss / Vertigo - CARDIOVASCULAR Cardiovascular: DENIES: Chest pain - RESPIRATORY Respiratory: DENIES: Trouble Breathing, Coughing - GASTROINTESTINAL Gastrointestinal: DENIES: Abdominal Pain, Black / Bloody Stools - REPRODUCTIVE Reproductive: DENIES: : Past Medical History - General Information source: Patient - Social History Smoking Status: Former Smoker Chew tobacco use (# tins/day): No Frequency of alcohol use: None Drug Abuse: None Occupation: Call center Family History: Reviewed & Not Pertinent Patient has suicidal ideation: No Patient has homicidal ideation: No Pulmonary Medical History: Reports: Hx Asthma Renal/ Medical History: Denies: Hx Peritoneal Dialysis Past Surgical History: Reports: Hx Section - 1, Hx Oral Surgery - tooth removal - Immunizations Immunizations up to date: No Hx Diphtheria, Pertussis, Tetanus Vaccination: No Vertical Provider Document - CONSTITUTIONAL Agree With Documented VS: Yes Exam Limitations: No Limitations General Appearance: WD/WN, No Apparent Distress - INFECTION CONTROL TRAVEL OUTSIDE OF THE [place] IN LAST 30 DAYS: No - HEENT HEENT: Atraumatic, Normocephalic, PERRLA, Tympanic Membrane Red, Tympanic Membrane Bulging. negative: Conjuctival Injection, Pharyngeal Erythema - NECK Neck: Normal Inspection, Supple. negative: Lymphadenopathy-Left, Lymphadenopathy-Right - RESPIRATORY Respiratory: Breath Sounds Normal, No Respiratory Distress - CARDIOVASCULAR Cardiovascular: Regular Rate, Regular Rhythm - GI/ABDOMEN Gastrointestinal: Abdomen Soft, Abdomen Non-Tender - MUSCULOSKELETAL/EXTREMETIES Musculoskeletal/Extremeties: MAEW, FROM - NEURO Level of Consciousness: Awake, Alert, Appropriate Motor/Sensory: No Motor Deficit - DERM Integumentary: Warm, Dry, No Rash Course - Re-evaluation Re-evalutation: 07/07/19 10:03 Patient instructed on ibuprofen for pain Zithromax and decongestant. Patient was instructed to follow-up with her primary care provider within a week for recheck. She verbalized understanding to all instructions. She reports she does not have a primary care provider but she does have insurance. She was provided with a list of primary care providers. - Vital Signs Vital signs: Temp Pulse Resp BP Pulse Ox 98.1 F 76 16 132/83 H 100 07/07/19 08:02 07/07/19 08:02 07/07/19 08:02 07/07/19 08:02 07/07/19 08:02 Discharge - Discharge Clinical Impression: Acute pain of both ears Otitis media Qualifiers: Otitis media type: unspecified Chronicity: acute Qualified Code(s): H66.90 - Otitis media, unspecified, unspecified ear Condition: Stable Disposition: HOME, SELF-CARE Instructions: Azithromycin ([facility]), Family Physicians / Practices, Use of [id number]-[id number]-[id number] Ibuprofen ([facility]), Otitis Media ([facility]) Additional Instructions: *You have been evaluated for ear pain, otitis media *Take medication as prescribed, take ibuprofen as indicated for pain *Follow up with a primary care provider within one week for recheck *Return to ED for worsening condition, changes, needs Monitor your blood pressure. Your blood pressure was elevated today. This may be because you were anxious, in pain or because you need medication. It is important to follow up with your primary care provider for full evaluation. Prescriptions: Azithromycin [Zithromax 250 mg Tablet] 250 mg PO ASDIR PRN #6 tablet PRN Reason: Forms: Elevated Blood Pressure, Return to Work
== END 2019-07-07 09:17 | disposition home or self-care (01) ==
LOC: ER 07:58
DX: H92.03 Otalgia, bilateral (principal); H66.90 Otitis media, unspecified, unspecified ear; R11.0 Nausea; Z87.891 Personal history of nicotine dependence; J45.909 Unspecified asthma, uncomplicated
CPT/HCPCS: 99282

== ENCOUNTER 2020-04-07 09:18 | Emergency (ER) | payer OTHER ==
[2020-04-07] MEDS ORDERED: MECLIZINE HCL 25 MG TABLET PO ONE (10:52)
[2020-04-07] MEDS ORDERED: ONDANSETRON 4 MG TAB.RAPDIS PO ONE (10:52)
--- NOTE | 2020-04-07 12:21 | ER Document Report ---
Entered by AMERICO MAE SCRIBE 04/07/20 1034 Acting as scribe for:JOSE ARMANDO BAE MD ED General - General Chief Complaint: Headache Stated Complaint: DIZZINESS,EYE PAIN,HEADACHE Time Seen by Provider: 04/07/20 09:56 Mode of Arrival: Ambulatory Information source: Patient Notes: This 39 year old female patient presents to the emergency department today with complaints of dizziness with an associated headache. Patient reports that she first noticed this when she woke up this morning. Patient mentions every time she would try to stand up and walk she would get dizzy and stumble into things. Patient complains of nausea when the dizziness gets bad but she has not vomited. TRAVEL OUTSIDE OF THE [place] IN LAST 30 DAYS: No - Related Data Allergies/Adverse Reactions: Penicillins Allergy (Intermediate, Verified 04/07/20 09:29) Hives Past Medical History - General Information source: Patient - Social History Smoking Status: Former Smoker Cigarette use (# per day): No - quit 3 years ago Chew tobacco use (# tins/day): No Frequency of alcohol use: None Drug Abuse: None Lives with: Family Family History: Reviewed & Not Pertinent Pulmonary Medical History: Reports: Hx Asthma Past Surgical History: Reports: Hx Section - 1, Hx Oral Surgery - tooth removal - Immunizations Immunizations up to date: No Hx Diphtheria, Pertussis, Tetanus Vaccination: No Review of Systems - Review of Systems Constitutional: No symptoms reported EENT: No symptoms reported Cardiovascular: See HPI, Dizziness Respiratory: No symptoms reported Gastrointestinal: No symptoms reported Genitourinary: No symptoms reported Female Genitourinary: No symptoms reported Musculoskeletal: No symptoms reported Skin: No symptoms reported Hematologic/Lymphatic: No symptoms reported Neurological/Psychological: See HPI, Headaches -: Yes All other systems reviewed and negative Physical Exam - Vital signs Vitals: Temp Pulse Resp BP Pulse Ox 98.5 F 100 20 136/84 H 98 04/07/20 09:23 04/07/20 09:23 04/07/20 09:23 04/07/20 09:23 04/07/20 09:23 - Notes Notes: Physical Exam: General: Alert, appears nauseated after rapid head movement. Sitting in a dark room for comfort. HEENT: Normocephalic. Atraumatic. PERRL. Extraocular movements intact. Oropharynx clear. Right lateral gaze nystagmus, worsened with rapid head movement. Dizziness elicited with rapid head movement. Left occipital parietal and temporal scalp muscles are tender to palpate. Neck: Supple. Left posterior cervical muscles are tender to palpate. Respiratory: No respiratory distress. Clear and equal breath sounds bilaterally. Cardiovascular: Regular rate and rhythm. Abdominal: Normal Inspection. Non-tender. No distension. Normal Bowel Sounds. Back: No gross abnormalities. Extremities: Moves all four extremities. Upper extremities: Normal inspection. Normal ROM. Lower extremities: Normal inspection. No edema. Normal ROM. Neurological: Normal cognition. AAOx4. Normal speech. Psychological: Normal affect. Normal Mood. Skin: Warm. Dry. Normal color. Course - Re-evaluation Re-evalutation: 04/07/20 12:23 Patient reports after she got the medications, she became nauseous and had some dry heaves but did not throw up the medicine. She states that this time the dizziness is a little better but is still present she still has nauseousness, and she still has headache on the left side of her head going from the base of the neck up over the top and side of the left scalp going behind the left eye. She states this does not feel like her typical migraine. 04/07/20 14:07 At this time the headache is gone, the dizziness is gone. If I palpate the nuchal insertion of the left posterior cervical muscles that region remains tender. - Vital Signs Vital signs: Temp Pulse Resp BP Pulse Ox 98.5 F 100 20 136/84 H 98 04/07/20 09:23 04/07/20 09:23 04/07/20 09:23 04/07/20 09:23 04/07/20 09:23 Discharge - Discharge Clinical Impression: Vertigo Tension type headache Qualifiers: Headache chronicity pattern: acute headache Intractability: not intractable Qualified Code(s): G44.209 - Tension-type headache, unspecified, not intractable Condition: Stable Disposition: HOME, SELF-CARE Additional Instructions: Tension Headache Your problem has been diagnosed as muscle tension headache. This very common type of headache occurs because of tightness in the muscles of the head and neck. The cause may be neck or jaw joint problems, but most commonly the cause is emotional stress. The headache may last hours or days. The treatment of uncomplicated tension headaches is rest and pain medication. Often, the newer antiinflammatory pain medications are prescribed, as these also decrease the irritability of the painful tissues. Muscle relaxers, cold packs, or warm packs are sometimes helpful. Anti-anxiety medication or narcotics are sometimes needed temporarily, but are best avoided in the long run. Your doctor has evaluated your headache problem, and finds no evidence of a serious health problem as a cause for the headache. If your headache becomes more severe, or if new symptoms develop (such as fever, stiff neck, vomiting, or decreasing alertness) you should be re-examined by the physician. Vertigo You have experienced an episode of vertigo -- a whirling dizziness which may be accompanied by nausea and vomiting or staggering. Vertigo is often caused by an irritation of the inner ear, in which case it is called labyrinthitis. It can also be a symptom of a degenerating inner ear, nerve damage, or brain injury. Your physician has evaluated you to determine whether any further testing is necessary. Vertigo is often treated with dramamine or meclizine. These medications are helpful, but stronger medication may be needed if you are vomiting. Rest in bed. You should not drive or operate machinery until completely better. It may take one to three weeks for recovery. If there are new symptoms, such as decreased hearing or vision, severe headache, weakness or faintness, or confusion, call the physician. Rest in a cool, quiet dark place today. Take the Antivert as prescribed for dizziness. Take 1 Benadryl with 600 mg of ibuprofen and a large glass of water and try to sleep if the headache returns. Follow-up with your primary care provider if not improving RETURN TO THE EMERGENCY ROOM IF ANY NEW OR WORSENING SYMPTOMS. I personally performed the services described in the documentation, reviewed and edited the documentation which was dictated to the scribe in my presence, and it accurately records my words and actions.
[2020-04-07] MEDS ORDERED: DIPHENHYDRAMINE HCL 50 MG/ML VIAL IV ONE (12:22)
[2020-04-07] MEDS ORDERED: PROCHLORPERAZINE EDISYLATE INJ 10 MG/2 ML VIAL IV ONE (12:22)
[2020-04-07] MEDS ORDERED: NORMAL SALINE 1000 ML 1,000 ML IV ONE (12:22)
[2020-04-07] MEDS ORDERED: KETOROLAC TROMETHAMINE INJ/PF 30 MG/1 ML SDV IV ONE (12:23)
[2020-04-07 15:09] VITALS: BP 126/82
== END 2020-04-07 14:30 | disposition home or self-care (01) ==
LOC: ER 09:18
DX: G44.209 Tension-type headache, unspecified, not intractable (principal); H55.00 Unspecified nystagmus; R42 Dizziness and giddiness; R11.0 Nausea; Z87.891 Personal history of nicotine dependence; J45.909 Unspecified asthma, uncomplicated; Z88.0 Allergy status to penicillin
CPT/HCPCS: 99284; 96361; 96374; 96375; J1200; S0119; J1885; J0780; J7030